=== PATIENT | female | born 1940 | race Caucasian/White ===

== ENCOUNTER 2021-11-02 08:33 | Emergency (ER) | payer MEDICARE, OTHER, SELFPAY ==
[2021-11-02] VITALS (9 sets, daily range): BP systolic 103–127; BP diastolic 64–83; PULSE 62–72; RESP 9–24; TEMP 36.6; O2SAT 96–98
--- NOTE | ~2021-11-02 | XR_ITS ---
EXAMINATION: XR lumbar spine 2-3V DATE: 11/02/2021 09:37 INDICATION: Back and right flank pain TECHNIQUE: Anteroposterior and lateral views of the lumbar spine, and cone-down lateral view of the l umbosacral junction were obtained. COMPARISON: None. FINDINGS: The bones are osteopenic which limits the sensitivity for fracture however none is seen. Th e vertebral body heights and alignment are maintained. There is mild loss of intervertebral disc spac e height throughout the lumbar spine. 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 Pelvic calcifications likely reflect uterine fibroids. IMPRESSION: 1. Levoscoliosis and mild spondylosis without acute findings. Reviewed, dictated and finalized at location B.
--- NOTE | 2021-11-02 10:05 | ED.BACK ---
HPI - Back Pain/Injury General Chief Complaint: Back Pain/Injury Stated Complaint: R FLANK/HIP PAIN Time Seen by Provider: 11/02/21 08:54 History of Present Illness HPI Narrative: 81-year-old female presents the emergency room complaints of tenderness to her right gluteal area. Patient denies any injury or trauma. States that she woke up this morning experiencing pain, stating the pain is worse with rotational movements of her trunk. States this morning she was experiencing some weakness, nausea vomiting. Reportedly took an ibuprofen and this mildly alleviated her pain. Denies any radiating pain. Denies any dysuria or difficulty urinating. Denies any history of kidney stones. Related Data Home Medications Medication Instructions Recorded Confirmed levothyroxine 25 mcg tablet mcg 11/02/21 Allergies Allergy/AdvReac Type Severity Reaction Status Date / Time ampicillin Allergy Itching Verified 11/02/21 08:40 naproxen Allergy Rash Verified 11/02/21 08:41 Review of Systems Review of Systems: CONSTITUTIONAL: Denies fever, chills, or sweats. EYES: Denies visual changes, redness, or discharge. ENT: Denies rhinorrhea, congestion, sore throat, or otalgia. CARDIOVASCULAR: Denies chest pain, palpitations, or edema. RESPIRATORY: Denies cough or dyspnea. GASTROINTESTINAL: Denies abdominal pain, nausea, vomiting, or diarrhea. GENITOURINARY: Denies dysuria or hematuria. SKIN: Denies rash or itching. MUSCULOSKELETAL: Denies back pain, joint pain, or myalgia. NEUROLOGIC: Reports weakness PSYCHIATRIC: Denies anxiety or depression. Exam Narrative: GENERAL: Well-appearing, well-nourished, no physical limitations, and in no acute distress. HEAD: Normocephalic, atraumatic. EYES: Conjunctivae normal, PERRLA and EOMI. CHEST: Clear to auscultation. No respiratory distress. No wheezes rales or rhonchi. No tenderness. HEART: Regular rate and rhythm. No murmur heard. Normal peripheral pulses. BACK: No CVA tenderness; No cervical/thoracic/lumbar tenderness, step-offs, bony abnormality; range of motion with left lateral bend. Tenderness over the right gluteal muscles EXTREMITIES: RLE: +SLE SKIN: Warm, dry, no rash. No noted wounds NEURO: No focal deficits. Alert and oriented x3. MAEW. CN's II-XI intact bilaterally PSYCH: Cooperative. Normal mood and affect. Course Vital Signs Vital signs: Vital Signs Temperature 36.6 C 11/02/21 08:31 Pulse Rate 66 11/02/21 08:31 Respiratory Rate 16 11/02/21 08:31 Blood Pressure 118/80 11/02/21 08:31 Pulse Oximetry 98 11/02/21 08:31 Oxygen Delivery Room Air 11/02/21 08:31 Temperature 36.6 C 11/02/21 08:31 Pulse Rate 66 11/02/21 11:16 Respiratory Rate 20 11/02/21 11:16 Blood Pressure 110/83 11/02/21 11:16 Pulse Oximetry 96 11/02/21 11:16 Oxygen Delivery Room Air 11/02/21 08:31 MDM - Back Pain/Injury MDM Narrative Medical decision making narrative: 81-year-old female presented with complaints of pain in her right gluteal region. Plain films of her lower spine showed no acute bony abnormalities. CBC and CMP were largely unremarkable. No signs of infection in her urine. Patient likely experiencing piriformis disorder. We will send patient home with muscle relaxer and tell her to continue taking anti-inflammatories. Lab Data Result diagrams: 11/02/21 10:22 11/02/21 09:43 Labs: Lab Results 11/02/21 11/02/21 11/02/21 Range/Units 09:43 09:43 10:22 WBC 9.8 (4.5-10.0) K/mm3 RBC 3.88 L (4.2-5.4) M/mm3 Hgb 12.4 (12.0-15.0) g/dL Hct 38.5 (37.0-47.0) % MCV 99.2 (80-100) fl MCH 32.0 (26-34) pg MCHC 32.2 (32-36) g/dl RDW 12.3 (11.5-14.5) % Plt Count 194 (150-375) k/mm3 MPV 9.4 (7.4-10.4) fl Immature Gran % (Auto) 0.4 (0-0.5) % Neut % (Auto) 85.4 H (45.5-73.1) % Lymph % (Auto) 7.3 L (18.3-44.2) % [place] % (Auto) 6.3 (2.6-8.5) % Eos % (Auto) 0.1 (0-4.
[2021-11-02 10:26] LABS: Alanine Aminotransferase 10 U/L (6-35); Albumin Level 3.8 g/dL (3.5-5.1); Alkaline Phosphatase 105 U/L (38-126); Anion Gap 8 mmol/L (8-16); Aspartate Amino Transferase 25 U/L (14-36); Blood Urea Nitrogen 15 mg/dL (7-17); Calcium 8.9 mg/dL (8.4-10.2); Carbon Dioxide 27 mmol/L (22-30); Chloride 99 mmol/L (98-107); Estimated CRCL calculation 43 ml/min; Estimated Glomerular Filt Rate > 60; Glucose 125 mg/dL (65-110); Potassium 3.9 mmol/L (3.4-5.0); Sodium 134 mmol/L (137-145)
[2021-11-02 10:34] LABS: Basophils Absolute Auto 0.1 K/mm3 (0.0-0.1); Basophils Percent Auto 0.5 % (0.2-1.2); Eosinophils Percent Auto 0.1 % (0-4.4); Hematocrit 38.5 % (37.0-47.0); Hemoglobin 12.4 g/dL (12.0-15.0); Immature Granulocyte Absolute 0.04 K/mm3 (0.00-0.031); Immature Granulocyte Percent A 0.4 % (0-0.5); Lymphocytes Absolute Auto 0.72 K/mm3 (0.9-3.2); Lymphocytes Percent Auto 7.3 % (18.3-44.2); Mean Corpuscular HGB Conc 32.2 g/dl (32-36); Mean Corpuscular Volume 99.2 fl (80-100); Mean Platelet Volume 9.4 fl (7.4-10.4); Monocytes Absolute Auto 0.6 K/mm3 (0.1-0.6); Monocytes Percent Auto 6.3 % (2.6-8.5); Neutrophils Absolute Auto 8.4 K/mm3 (1.3-6.7); Neutrophils Percent Auto 85.4 % (45.5-73.1); Platelet Count Result 194 k/mm3 (150-375); Red Blood Count 3.88 M/mm3 (4.2-5.4); Red Cell Distribution Width 12.3 % (11.5-14.5); White Blood Count 9.8 K/mm3 (4.5-10.0)
[2021-11-02] MEDS: MORPHINE SULFATE (*CRX) 2 MG/ML INJ IV PUSH (10:35)
[2021-11-02 10:58] LABS: Appearance Urine Clear (Clear); Bilirubin Urine Negative (Negative); Blood Urine Negative (Negative); Color Urine Yellow (Yellow); Glucose Urine UA Negative (Negative); Ketones Urine 2+ mg/dL (Negative); Leukocyte Esterase Ur Negative LEU/UL (Negative); Nitrate Urine Negative (Negative); Protein Urine Trace mg/dL (Negative); Urobilinogen Urine 0.2 mg/dL (<2.0)
[2021-11-02 11:02] LABS: Mucus Urine Few /lpf; Squamous Epithelial Cell Urine Rare /hpf (Few); WBC Urine 0-3 /hpf
[2021-11-02 11:03] LABS: Add Urine Microscopic? YES
== END 2021-11-02 12:49 | disposition home or self-care (01) ==
PROVIDERS: Emergency Provider Nurse Practitioner Family
DX: M79.18 Myalgia, other site (principal); M47.816 Spondylosis without myelopathy or radiculopathy, lumbar region
CPT/HCPCS: 36415; 72100; 80053; 81001; 84443; 85025; 96374; 99284; J2270